=== PATIENT | female | born 1950 | race Caucasian/White ===

== ENCOUNTER 2021-10-31 08:48 | Emergency (ER) | payer OTHER, SELFPAY ==
[2021-10-31 09:01] VITALS: BP 135/77; PULSE 61; RESP 16; TEMP 36.7; O2SAT 98
--- NOTE | 2021-10-31 09:14 | ED.URI ---
HPI - URI/Sore Throat General Chief Complaint: Upper Respiratory Infection Stated Complaint: cough Time Seen by Provider: 10/31/21 09:07 Source: patient and RN notes reviewed Mode of arrival: ambulatory Limitations: no limitations History of Present Illness HPI Narrative: Patient presents today with a 4-day history of productive cough, sore throat, left ear pain, fatigue, diarrhea. Denies fever or vomiting. Currently rates her sore throat 8/10 and has been taking cough and cold medication as well as Benadryl without relief. She has been vaccinated against COVID-19. Denies any sick contacts. Denies any history of asthma, COPD, or seasonal allergies. MD elicited complaint: cough, sore throat and nasal congestion Related Data Home Medications Medication Instructions Recorded Confirmed amlodipine 10/31/21 apixaban [Eliquis] mg 10/31/21 atorvastatin 10/31/21 furosemide 10/31/21 insulin aspart U-100 [Novolog SUBCUT 10/31/21 Flexpen U-100 Insulin] levothyroxine 10/31/21 lisinopril 10/31/21 metoprolol succinate PO 10/31/21 omeprazole 10/31/21 trazodone 10/31/21 Allergies Allergy/AdvReac Type Severity Reaction Status Date / Time No Known Allergies Allergy Verified 10/31/21 09:11 Review of Systems Review of Systems: CONSTITUTIONAL: Denies body aches, fever, chills, or sweats.+ Fatigue EYES: Denies visual changes, redness, or discharge. ENT: Denies rhinorrhea. + Congestion, sore throat, left ear pain CARDIOVASCULAR: Denies chest pain, palpitations, or edema. RESPIRATORY: Denies dyspnea.+ Cough GASTROINTESTINAL: Denies abdominal pain, nausea, vomiting. + Diarrhea GENITOURINARY: Denies dysuria or hematuria. SKIN: Denies rash, itching, or wounds. MUSCULOSKELETAL: Denies back pain, joint pain, or myalgia. NEUROLOGIC: Denies headache, numbness, tingling, or weakness. PSYCH: Denies depression or anxiety. [facility] Past Medical History Medical History (Updated 10/31/21 @ 09:43 by Radha Staley, [facility], ) A-fib Diabetes GERD (gastroesophageal reflux disease) Hypothyroidism Surgical History Surgical History (Updated 10/31/21 @ 09:17 by Radha Staley, [employer], ) H/O Whipple procedure History of artificial heart valve Comments At time of signature, I have reviewed and agree with nursing past medical, surgical, social and family history unless otherwise noted. Please see nursing chart for further information. There is no relevant family history pertinent to the presenting complaint Exam Narrative: GENERAL: Mildly ill-appearing, well-nourished, and in no acute distress. HEAD: Normocephalic, atraumatic. EYES: EOMI. No redness or drainage. Conjunctivae normal. ENT: Mucous membranes pink and moist. Nares congested. No rhinorrhea. TMs normal bilaterally. Throat normal. Uvula midline. NECK: Normal AROM. Supple. No lymphadenopathy. CHEST: No respiratory distress. Clear to auscultation. HEART: Irregularly irregular. No murmur appreciated. Normal peripheral pulses. EXTREMITIES: Normal range of motion. No edema. SKIN: Warm, dry, no rash. Capillary refill normal. Normal skin turgor. NEURO: No focal deficits. Alert and oriented x3. Gait steady. PSYCH: Normal affect. No signs of depression or anxiety. Course Course Level of Care: Express Care Visit Vital Signs Vital signs: Vital Signs Temperature 98.0 F 10/31/21 09:01 Pulse Rate 61 10/31/21 09:01 Respiratory Rate 16 10/31/21 09:01 Blood Pressure 135/77 10/31/21 09:01 Pulse Oximetry 98 10/31/21 09:01 Temperature 98.0 F 10/31/21 09:01 Pulse Rate 61 10/31/21 09:01 Respiratory Rate 16 10/31/21 09:01 Blood Pressure 135/77 10/31/21 09:01 Pulse Oximetry 98 10/31/21 09:01 Reviewed. Pt has been instructed to follow up with her PCP regarding her elevated blood pressure today. MDM - URI/Sore Throat Differential Diagnosis Differential diagnosis: Likely upper respiratory infection, otitis media, sinusitis,
== END 2021-10-31 09:45 | disposition home or self-care (01) ==
PROVIDERS: Emergency Provider Nurse Practitioner
DX: J06.9 Acute upper respiratory infection, unspecified (principal); Z20.822 Contact with and (suspected) exposure to COVID-19; I48.91 Unspecified atrial fibrillation; E11.9 Type 2 diabetes mellitus without complications; K21.9 Gastro-esophageal reflux disease without esophagitis; E03.9 Hypothyroidism, unspecified
CPT/HCPCS: 87426; 87804; 99213; C9803; G0463